=== PATIENT | female | born 1980 | race Caucasian/White ===

== ENCOUNTER → 2019-11-13 08:52 | Outpatient (BNVA) | payer OTHER, SELFPAY | PROVIDERS: Family Provider Physician Assistant; PCP Family Medicine; Visit Provider Anesthesiology | DX: M54.42 Lumbago with sciatica, left side (principal); M47.27 Other spondylosis with radiculopathy, lumbosacral region; M54.9 Dorsalgia, unspecified; F17.210 Nicotine dependence, cigarettes, uncomplicated; Z79.891 Long term (current) use of opiate analgesic | CPT/HCPCS: 99213; 99214 ==

== ENCOUNTER → 2020-02-05 13:04 | Outpatient (BNVA) | payer OTHER, SELFPAY | PROVIDERS: Family Provider Physician Assistant; PCP Family Medicine; Visit Provider Anesthesiology | DX: M47.27 Other spondylosis with radiculopathy, lumbosacral region (principal); M54.9 Dorsalgia, unspecified; F17.210 Nicotine dependence, cigarettes, uncomplicated; Z79.891 Long term (current) use of opiate analgesic | CPT/HCPCS: 99212; 99213; 99214 ==

== ENCOUNTER → 2020-05-05 12:43 | Outpatient (BNVA) | payer OTHER, SELFPAY | PROVIDERS: Family Provider Physician Assistant; PCP Family Medicine; Visit Provider Anesthesiology | DX: M47.27 Other spondylosis with radiculopathy, lumbosacral region (principal); M54.9 Dorsalgia, unspecified; F17.210 Nicotine dependence, cigarettes, uncomplicated; Z79.891 Long term (current) use of opiate analgesic | CPT/HCPCS: 99213 ==

== ENCOUNTER → 2020-07-29 13:54 | Outpatient (BNVA) | payer OTHER, SELFPAY | PROVIDERS: Family Provider Physician Assistant; PCP Family Medicine; Visit Provider Anesthesiology | DX: M54.9 Dorsalgia, unspecified (principal); F17.210 Nicotine dependence, cigarettes, uncomplicated | CPT/HCPCS: 99213 ==

== ENCOUNTER → 2020-11-04 11:13 | Outpatient (BNVA) | payer OTHER, SELFPAY | PROVIDERS: Family Provider Physician Assistant; PCP Family Medicine; Visit Provider Anesthesiology | DX: G89.29 Other chronic pain (principal); M47.27 Other spondylosis with radiculopathy, lumbosacral region; F17.210 Nicotine dependence, cigarettes, uncomplicated; Z79.891 Long term (current) use of opiate analgesic | CPT/HCPCS: 99213 ==

== ENCOUNTER → 2021-01-10 10:51 | Outpatient (BNVA) | payer SELFPAY | PROVIDERS: Family Provider Physician Assistant; PCP Family Medicine; Visit Provider Dermatology | DX: Z01.89 Encounter for other specified special examinations (principal) ==

== ENCOUNTER → 2021-01-27 12:59 | Outpatient (BNVA) | payer OTHER, SELFPAY | PROVIDERS: Family Provider Physician Assistant; PCP Family Medicine; Visit Provider Anesthesiology | DX: G89.29 Other chronic pain (principal); M47.27 Other spondylosis with radiculopathy, lumbosacral region; F17.210 Nicotine dependence, cigarettes, uncomplicated; Z79.891 Long term (current) use of opiate analgesic | CPT/HCPCS: 99213 ==

== ENCOUNTER 2021-11-13 09:16 | Emergency (ER) | payer SELFPAY ==
[2021-11-13 09:21] VITALS: BP 165/113; PULSE 110; RESP 16; TEMP 37.1; O2SAT 99; BMI 25.0
--- NOTE | 2021-11-13 09:41 | ED_ITS ---
HPI - Extremity Problem General: Chief complaint: General Medical Stated complaint: left arm numbness, shoulder/neck pain Time Seen by Provider: 11/13/21 09:18 Source: patient Mode of arrival: ambulatory Limitations: no limitations History of Present Illness: Patient is a 41-year-old female who presents to ED today with a complaint of left-sided neck and posterior shoulder pain that radiates down into her left upper extremity. Patient states pain initially began 3 days ago after weed eating. She states pain seems to be worse with movement of her neck and left shoulder. She states she is having numbness/tingling to her left arm. She has not noticed any color or temperature changes. Patient states she has tried treating at home with NSAIDs, ice/heat, her normal pain medication?Tramadol all without much relief. MD Complaint: joint pain (L shoulder/pain) Onset (ago): day(s) (3 days ago) Pain Consistency: constant Location: left Radiation: distal Exacerbating factors: range of motion Associated symptoms: Deny chest pain, fever(s) or rash Review of Systems Const: Denies: fever(s), chills, body aches, fatigue or malaise Card: Denies: chest pain Resp: Denies: dyspnea GI: Denies: abdominal pain Musc: Reports: neck pain, back pain, joint pain (L shoulder) and limited range of motion; Denies: extremity pain, extremity swelling, joint swelling, joint redness or joint warmth Skin/Breast: Denies: rash Neuro: Reports: sensory changes (reports tingling to L UE); Denies: headache(s) or weakness in extremities PFSH ED PFSH: Medical History Chronic low back pain Encounter for long-term use of opiate analgesic Lumbosacral spondylosis with radiculopathy Opioid contract exists Smoker Surgical History H/O adenoidectomy H/O section History of lumbar laminectomy Hx of tonsillectomy Family History Other CAD (coronary artery disease) Cancer Diabetes Social History Alcohol intake: never History of recent travel: No Physical Exam Const: COMMON NORMALS: no acute distress, average body habitus, patient oriented x3, no limitations, alert and well nourished GENERAL APPEARANCE: cooperative ORIENTATION/CONSCIOUSNESS: Yes awake, Yes oriented to person, Yes oriented to place and Yes oriented to time HENMT: COMMON NORMALS: normocephalic and atraumatic HEAD & SCALP: normal to inspection, normocephalic and atraumatic Neck/C-Spine: COMMON NORMALS: full ROM GENERAL: Yes normal visual inspection, No anterior neck swelling and No submandibular swelling CERVICAL SPINE: Yes cervical ROM normal, No Cervical spine tenderness, No step off deformity, Yes Paracervical muscle tenderness left and Yes Trapezius muscle tenderness left Resp: COMMON NORMALS: normal respiratory effort and clear to auscultation bilaterally AUSCULTATION: clear to auscultation bilaterally Cardio: COMMON NORMALS: regular rate and regular rhythm RATE: regular rate RHYTHM: regular rhythm Back/Pelvis: THORACIC SPINE/UPPER BACK: No thoracic spinal tenderness, Yes paraspinal muscle tenderness and Yes paraspinal muscle spasm BACK IMAGE (FEMALE): 1. TTP; palpation directly reproduces patient's pain Extremity: COMMON NORMALS: capillary refill normal, no joint enlargement and no clubbing, cyanosis or edema GENERAL: Yes normal exam except as noted LEFT UPPER EXTREMITY: Yes shoulder joint OTHER: TTP to L posterior shoulder/trapezius; pain reproduced by flexion/abduction past 90 degrees; no color/temp changes to extremity; normal pulses/cap refill Neuro: ALISTAIR COMA SCALE: document GCS findings [place] coma scale eye opening: Spontaneous [place] coma scale verbal response: Orientated [place] coma scale motor response: Obey commands [place] coma scale total score: 15 COMMON NORMALS: patient oriented x3, moves all extremities, no focal motor deficits and no sensory deficits noted SENSORIUM/ORIENTATION: Yes alert, Yes oriented to person, Yes oriented to place and Yes oriented to time MOTOR EXAM: 5/5 motor strength present throughout OTHER: she reported numbness to L UE during history but on physical she is reporting sensory normally bilaterally; strength intact Course Vital Signs: Vital signs: Vital Signs Temperature 98.7 F 11/13/21 09:21 Pulse Rate 82 11/13/21 11:24 Respiratory Rate 14 11/13/21 11:24 Blood Pressure 165/113 11/13/21 09:21 Pulse Oximetry 100 11/13/21 11:24 MDM - Extremity (Nontraumatic) Medical Decision Making Patient feeling much better after medications given here. Patient did complain of some left upper extremity paresthesias however sensory is normal and equal bilaterally on exam. Strength intact. Patient has reproducible pain over her left cervical paraspinal musculature, trapezius, and posterior shoulder. DDx includes trapezius muscular strain, rotator cuff tendinopathy, cervical nerve compression/radiculopathy. Will treat with NSAIDS/muscle relaxers/steroids and have her follow-up with primary care this week for reevaluation. Patient states she does have meloxicam and flexeril that she takes as needed for her lower back pain but they were not helping with this particular discomfort. We will prescribe her something different. She was alerted that she does not need to be taking both anti-inflammatories or muscle relaxers at the same time. Patient voiced understanding. Discharge Plan Discharge Patient Disposition: Home Clinical Impression: Strain of cervical portion of left trapezius muscle Condition: Stable Prescriptions: New methocarbamol 500 mg tablet 1,000 mg PO Q8H Qty: 30 0RF dexamethasone 6 mg tablet 6 mg PO DAILY Qty: 6 0RF diclofenac sodium 50 mg tablet,delayed release (DR/EC) 50 mg PO Q12H PRN (Reason: pain) Qty: 20 0RF No Action sennosides [senna] 8.6 mg tablet 8.6 mg PO BID PRN0RF cyclobenzaprine 5 mg tablet 5 mg PO DAILY PRN (Reason: muscle spasm) 30 Days Qty: 30 1RF meloxicam 15 mg tablet 15 mg PO DAILY 30 Days Qty: 30 1RF tramadol 50 mg tablet 50 mg PO QID PRN (Reason: pain) 30 Days Qty: 120 1RF Rx Instructions: fill on or after 05/27/21 and 06/25/21 Discharge Orders: Discharge ED (Routine); Ordered 11/13/21 Ordered By: Leann Sims Referrals: Edmund Yang MD [Primary Care Provider] - Stand Alone Forms: Work/School Release Coding Level of Care Code ED 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
[2021-11-13] MEDS: dexamethasone 10 mg/mL INJ IVP (10:22)
[2021-11-13] MEDS: ketorolac 30 mg/mL INJ IVP (10:22)
[2021-11-13 10:23] VITALS: RESP 14; O2SAT 100
[2021-11-13] MEDS: morphine 4 mg/mL SDV 1 mL IVP (10:23)
[2021-11-13] MEDS: orphenadrine 30 mg/mL Inj 2 mL 60 MG IVP (10:23)
[2021-11-13 11:24] VITALS: PULSE 82; RESP 14; O2SAT 100
== END 2021-11-13 11:47 | disposition home or self-care (01) ==
PROVIDERS: Emergency Provider Physician Assistant; PCP Family Medicine
DX: S16.1XXA Strain of muscle, fascia and tendon at neck level, initial encounter (principal); X58.XXXA Exposure to other specified factors, initial encounter
CPT/HCPCS: 96374; 96375; 99284; J1100; J1885; J2270; J2360

== ENCOUNTER 2022-03-02 13:36 | Outpatient (CLI) | payer SELFPAY ==
--- NOTE | 2022-03-02 14:03 | MR_ITS ---
WS: [id number] MRI CERVICAL SPINE NONCONTRAST TECHNIQUE: Sagittal T1, T2 and STIR imaging. Axial T2, gradient, and fiesta imaging. CLINICAL INFORMATION: S16.1XXA - Strain of muscle, fascia and tendon at neck le... COMPARISON: None. FINDINGS: Straightening of the normal cervical lordosis. Cord signal is normal. No high-grade central canal leo rowing. Disc bulging worse at C5-C6 and C6-C7. C2-C3: Mild facet arthropathy. Spinal canal and foramen are patent. C3-C4: Mild facet arthropathy. Spinal canal and foramen are patent. C4-C5: Mild disc osteophytic ridging. Mild LEFT and no significant RIGHT foraminal narrowing. Mild fa cet arthropathy. Spinal canal is patent. C5-C6: Mild disc bulging with a tiny shallow central protrusion. Slight contact of the cervical cord. Spinal canal is patent. Mild facet arthropathy. Foramen are patent. C6-C7: Disc osteophyte complex with endplate ridging. Shallow LEFT pericentral protrusion with slight indentation on the cervical cord. Associated small annular tear. Mild LEFT foraminal narrowing with encroachment on the exiting LEFT C7 nerve root. RIGHT foramen is patent. Mild facet arthropathy. Tiny amount of myelomalacia in the LEFT ventral cervical cord. C7-T1: Spinal canal and foramen are patent. Visualized brain stem structures: Normal. Prevertebral soft tissues: Normal. MR/MR cervical spin wo con* [id number] IMPRESSION: 1. Mild central canal stenosis C6-C7 with a LEFT pericentral protrusion. Inden tation LEFT ventral cervical cord with suggestion of a tiny amount of myelomala hunter. Mild LEFT foraminal narrowing encroaches on the exiting LEFT C7 nerve root . 2. Tiny shallow central protrusion C5-C6 with slight contact of the cervical c ord. Spinal canal is patent. 3. LEFT eccentric disc osteophyte complex C4-C5 with mild to moderate LEFT for aminal narrowing. 4. Mild to moderate facet arthropathy C3-C4, C4-C5 and C5-C6
--- NOTE | 2022-03-02 14:05 | MR_ITS ---
WS: [id number] MRI LEFT SHOULDER NONCONTRAST TECHNIQUE: Sagittal T2, coronal T1, T2 and proton density imaging. Axial gradient PDE imaging. CLINICAL INFORMATION: PARESTHESIA OF ARM/PAINFUL NECK COMPARISON: None. FINDINGS: Mild degenerative arthritis at the AC joint. Moderate downsloping of the acromion. Small amount of toussaint bacromial/subdeltoid fluid. Slight impingement on the supraspinatus. Distal supraspinatus is intact. Mild chronic thinning of the distal supraspinatus and infraspinatus. Infraspinatus is intact. Normal teres minor. Normal subscapularis. Normal biceps tendon in the bicipital groove. Normal biceps labral anchor. Glenoid labrum appears nor mal. Normal bone marrow signal in the humerus and glenoid. Degenerative subchondral cystic change inv olving the humeral head posterior laterally. MR/MR shoulder LT wo con* [id number] IMPRESSION: 1. Mild degenerative arthritis AC joint with moderate downsloping of the acrom ion. Impingement on the distal supraspinatus. 2. Supraspinatus and infraspinatus are intact. Mild chronic atrophy of the dis derek supraspinatus and infraspinatus tendons. 3. Rotator cuff is otherwise normal. 4. Normal biceps tendon in the bicipital groove. Intra-articular biceps tendon appears normal. 5. No other suspicious findings.
== END 2022-03-02 13:37 | disposition home or self-care (01) ==
LOC: RAD 13:37
PROVIDERS: PCP Family Medicine; Visit Provider Family Medicine
DX: R20.2 Paresthesia of skin (principal); M19.012 Primary osteoarthritis, left shoulder; M48.02 Spinal stenosis, cervical region; M50.223 Other cervical disc displacement at C6-C7 level; M25.78 Osteophyte, vertebrae; M47.812 Spondylosis without myelopathy or radiculopathy, cervical region
CPT/HCPCS: 72141; 73221

== ENCOUNTER → 2022-05-31 13:22 | Outpatient (BNVA) | payer BC, SELFPAY | PROVIDERS: PCP Family Medicine; Visit Provider Nurse Practitioner Women's Health | DX: Z32.00 Encounter for pregnancy test, result unknown (principal); R10.2 Pelvic and perineal pain; N91.2 Amenorrhea, unspecified | CPT/HCPCS: 81025; 87624 ==